=== PATIENT | female | born 1985 | race Caucasian/White ===

== ENCOUNTER 2018-03-28 22:52 | Emergency (ER) | payer MEDICAID, OTHER ==
[~2018-03-28] VITALS: Ht 170.2 cm; Wt 65.2 kg
[~2018-03-28 22:52] MED LIST: CLON-285 PO; OMEP40CA PO
[2018-03-28 22:54] VITALS: BP 134/99
[2018-03-28] MEDS ORDERED: CLON-528 PO (23:54)
== END 2018-03-29 00:15 | disposition home or self-care (01) ==
LOC: ER 22:53
DX: F41.9 Anxiety disorder, unspecified (principal); Z76.0 Encounter for issue of repeat prescription; F43.10 Post-traumatic stress disorder, unspecified; Z79.899 Other long term (current) drug therapy
CPT/HCPCS: 99283

== ENCOUNTER 2018-05-05 03:39 | Emergency (ER) | payer MEDICAID ==
[~2018-05-05] VITALS: Ht 170.2 cm; Wt 62.1 kg
[~2018-05-05 03:39] MED LIST changes: +CLON-528 PO
[2018-05-05 03:47] VITALS: BP 136/103
[2018-05-05] MEDS ORDERED: amoxicillin 250mg capsule PO ONE (04:05)
[2018-05-05] MEDS ORDERED: ibuprofen tablet 400 MG TABLET PO ONE (04:05)
[2018-05-05] MEDS ORDERED: diphenhydrAMINE 25mg capsule PO ONE (04:05)
[2018-05-05] MEDS ORDERED: ondansetron 4mg rapidly disintigrating tab PO ONE (04:05)
[2018-05-05] MEDS ORDERED: AMOX500C2 PO (04:05)
== END 2018-05-05 04:27 | disposition home or self-care (01) ==
LOC: ER 03:39
DX: K08.89 Other specified disorders of teeth and supporting structures (principal); F41.9 Anxiety disorder, unspecified; F41.0 Panic disorder [episodic paroxysmal anxiety]; Z72.89 Other problems related to lifestyle
CPT/HCPCS: 99284; Q0163

== ENCOUNTER 2021-08-22 21:12 | Emergency (ER) | payer MEDICAID ==
[~2021-08-22] VITALS: Ht 170.2 cm; Wt 68.2 kg
[~2021-08-22 21:12] MED LIST changes: -CLON-285 PO; +CLON-565 PO
[2021-08-22 21:36] LABS: BASOPHILS % (AUTO) 0.3 % (0-1); EOSINOPHILS # (AUTO) 0.1 X10'3 (0-0.9); EOSINOPHILS % (AUTO) 1.6 % (0-6); HEMATOCRIT 38.3 % (35.0-45.0); HEMOGLOBIN 13.3 g/dl (12.0-16.0); LYMPHOCYTES # (AUTO) 2.7 X10'3 (1.1-4.8); LYMPHOCYTES % (AUTO) 31.3 % (21-51); MEAN CORPUSCULAR HEMOGLOBIN 30.2 PG (27.0-31.0); MEAN CORPUSCULAR HGB CONC 34.6 g/dL (33.0-36.5); MEAN CORPUSCULAR VOLUME 87.3 FL (78-98); MEAN PLATELET VOLUME 7.4 FL (7.4-10.4); MONOCYTES # (AUTO) 0.8 X10'3 (0-0.9); MONOCYTES % (AUTO) 9.2 % (2-12); NEUTROPHILS # (AUTO) 4.9 X10'3 (1.8-7.7); NEUTROPHILS % (AUTO) 57.6 % (42-75); PLATELET COUNT 361 X10'3 (140-440); RED BLOOD COUNT 4.39 X10'6 (4.20-5.60); RED CELL DISTRIBUTION WIDTH 13.7 % (11.5-14.5); WHITE BLOOD COUNT 8.5 X10'3 (4.5-11.0)
[2021-08-22 21:45] LABS: ALANINE AMINOTRANSFERASE 18 U/L (12-78); ALBUMIN 3.3 G/DL (3.4-5.0); ALBUMIN/GLOBULIN RATIO 0.9 (1.1-1.5); ALKALINE PHOSPHATASE 58 IU/L (46-116); ANION GAP 7 (8-16); ASPARTATE AMINO TRANSFERASE 16 U/L (10-37); BILIRUBIN,TOTAL 0.2 MG/DL (0.1-1.0); BLOOD UREA NITROGEN 7 MG/DL (7-18); BUN/CREATININE RATIO 14.3 (6.6-38.0); CALCIUM 9.1 MG/DL (8.5-10.1); CHLORIDE 105 MMOL/L (99-107); CREATININE 0.49 MG/DL (0.40-0.90); GLUCOSE 96 MG/DL (70-104); POTASSIUM 3.8 MMOL/L (3.5-5.1); SODIUM 140 MMOL/L (135-145); eGFR > 90 ML/MIN
[2021-08-22 22:08] LABS: LIPASE 108 U/L (73-393)
[2021-08-22 22:11] LABS: BETA HCG,QUANTITATIVE 20605 mIU/ml
[2021-08-22 22:43] LABS: CLARITY,URINE SLIGHTLY CLOUDY (Clear); COLOR,URINE YELLOW (Yellow); GLUCOSE, URINE NEGATIVE (Neg); KETONES,URINE TRACE mg/dl (Neg); LEUKOCYTE ESTERASE ,URINE NEGATIVE (Neg); NITRITES, URINE NEGATIVE (Neg); OCCULT BLOOD,URINE NEGATIVE (Neg); PROTEIN,URINE TRACE mg/dl (Neg)
[2021-08-22 22:46] LABS: UA COLLECTION TYPE CLN CATCH MIDSTREAM
[2021-08-22 22:49] LABS: CAL OXALATE CRYSTALS 2+ /HPF (NEGATIVE); MUCUS STRANDS MANY /LPF (Neg)
[2021-08-22 22:50] LABS: SQUAMOUS EPITHELIAL CELL,UR MODERATE /LPF (FEW)
[2021-08-22 22:51] LABS: BACTERIA,URINE FEW /HPF (Neg); RBC,URINE NONE SEEN /HPF (0-2); WBC,URINE 0-4 /HPF (0-4)
[2021-08-22 23:33] VITALS: BP 140/79
== END 2021-08-22 23:36 ==
LOC: ER 21:12
DX: O99.342 Other mental disorders complicating pregnancy, second trimester (principal); F41.9 Anxiety disorder, unspecified; Z3A.20 20 weeks gestation of pregnancy; R10.30 Lower abdominal pain, unspecified; Z02.89 Encounter for other administrative examinations; Z79.899 Other long term (current) drug therapy
CPT/HCPCS: 36415; 76805; 80053; 81001; 83690; 84702; 85025; 99284